=== PATIENT | male | born 1985 ===

== ENCOUNTER 2025-03-06 07:53 | Day surgery (SDC) | payer OTHER ==
[2025-03-06] MEDS ORDERED: DIPHENHYDRAMINE HCL 50 MG/ML VIAL 1ML IV ONE (11:00)
[2025-03-06] MEDS ORDERED: fentaNYL CITRATE 50 MCG/ML AMPUL IV PUSH ONE (11:00)
[2025-03-06] MEDS ORDERED: MIDAZOLAM HCL 2 MG/2 ML VIAL IV ONE (11:00)
== END 2025-03-06 11:45 | disposition home or self-care (01) ==
LOC: AMB-ENDOS 07:53
PROVIDERS: ATTEND Colon & Rectal Surgery
DX: D12.2 Benign neoplasm of ascending colon (principal); K63.5 Polyp of colon; K57.30 Diverticulosis of large intestine without perforation or abscess without bleeding